=== PATIENT | female | born 1985 | race Caucasian/White ===

== ENCOUNTER 2020-07-02 21:46 | Inpatient (IN) | payer OTHER ==
[2020-07-02 22:23] VITALS: BMI 25.5
[2020-07-02] MEDS ORDERED: Promethazine HCl 25 MG/ML VIAL IM PRN (23:19)
[2020-07-02] MEDS ORDERED: NS / Oxytocin 40 units/1000ml 1,000 ML IV PRN (23:19)
[2020-07-02] MEDS ORDERED: Acetaminophen 500 MG TAB PO PRN (23:19)
[2020-07-02] MEDS ORDERED: hydrALAZINE 20 MG/ML VIAL SLOW IVP PRN (23:19)
[2020-07-02] MEDS ORDERED: Butorphanol Tartrate 1 MG/ML VIAL SLOW IVP PRN (23:19)
[2020-07-02] MEDS ORDERED: Misoprostol 200 MCG TAB PR PRN (23:19)
[2020-07-02] MEDS ORDERED: Ibuprofen 800 MG TAB PO PRN (23:19)
[2020-07-02] MEDS ORDERED: Ondansetron PF 4 MG/2 ML Vial IVP PRN (23:19)
[2020-07-02 23:42] LABS: Hemoglobin 12.4 g/dL (12.0-16.0); Mean Corpuscular HGB CONC 34.2 g/dL (32.0-36.0); Mean Corpuscular Hemoglobin 31.2 pg (27.0-31.0); Mean Corpuscular Volume 91.4 fL (78.0-98.0); Mean Platelet Volume 11.8 fL (7.4-10.4); Platelet Count 133 thou/uL (130-400); RBC Distribution Width 13.4 % (11.5-14.5); Red Blood Cell (RBC) Count 3.96 mill/uL (4.20-5.40); White Blood Cell (WBC) Count 11.3 thou/uL (4.8-10.8)
[2020-07-03 00:23] LABS: HBSAg Index 0.15 S/CO (0-0.99); Hep B Surf Ag Non-Reactive S/CO (NonReactive); Syphilis Antibody Nonreactive (Nonreactive); Syphilis Antibody Index 0.03 S/CO (<1.00 Non-Reactive)
--- NOTE | 2020-07-03 02:36 | PDOC.LDHP ---
Labor and Delivery H&P Chief complaint: contractions HPI: Patient started having contractions after drinking castor oil blend at 1800- 1830. they were 3-4 minutes apart when they started. Her product transfer pumper arrived at the house and then she arrived here to [place] together. Denies ROM. Affirms movement. Current gestational age (weeks): 41 Due date: 06/26/20 Dating criteria: other (IVF transfer) Grav: 2 Para: 1 OB History Details: 2017. 8.lbs5 ounces, possible 3rd degree laceration- pt does not recall the degree. Current complications: none Abnormal US findings: No Past Medical History: endometriosis hypothyroidism Current medications: pre- vitamins, other ([place] thyroid Vitamin D3) Previous surgical history: other (Laproscopy x 2 for endometriosis) Allergies/Adverse Reactions: Allergies Allergy/AdvReac Type Severity Reaction Status Date / Time No Known Drug Allergies Allergy Verified 07/02/20 22:10 Social history: none - Physical Exam Vital signs reviewed and normal: yes General: resting, breathing through contractions Lungs: nonlabored breathing Abdomen: gravid Extremeties: no edema FHT: category 1 - Vaginal Exam cm dilated: 6 Effacement: 90% Station: -1 - OB Labs Blood type: A RH: positive Antibody Screen: negative HIV: negative RPR: negative HEPSAg: negative 1 hour GCT: negative GBS: negative Urine drug screen: negative Rubella: immune - Assessment L&D Assessment: term patient in labor - Plan Plan: admit to L&D, informed consent obtained, anesthesia consult for pain management -: AROM at 0242 for augmentation of labor.
[2020-07-03] MEDS ORDERED: Lidocaine 1% (PF) 30 ML VIAL ONE (04:49)
[2020-07-03] MEDS ORDERED: NS w/ Oxytocin 10 units 500 ML ONE (08:15)
--- NOTE | 2020-07-03 08:40 | PDOC.BPN ---
- Brief Progress Note Encounter Date: 07/03/20 Encounter Time: 08:00 35 y.o at 41 weeks completely dilated and +2 - +3 with pushing. 2nd stage from [id number] and contractions completely stopped for 45 minutes. Pt was sleeping during this time. After resting, pt was moved to an upright position to encourage contractions to restart. Contractions did restart but are currently significantly spaced out at 8-10 minutes between each. While it is acknowledges this is prolonged 2nd stage for a multiparous patient, I feel this is a contraction frequency and power issue. Options were discussed to include starting pitocin to increase frequency vs. VE. Patient agrees to pitocin a this time. OB Hospitalist was notified and aware of the patient status.
--- NOTE | 2020-07-03 09:50 | PDOC.BPN ---
- Brief Progress Note Encounter Date: 07/03/20 Encounter Time: 09:42 After starting pitocin, contraction frequency did not increase. there was also a loss of station when pt was in lithotomy position. the patient was counseled on risks of continuing including harm, shoulder dystocia, and distress. Counseling and recommendation made to proceed with primary c-sections.
[2020-07-03] MEDS ORDERED: Bicitra 30 ML UDCUP PO SCH (10:00)
[2020-07-03] MEDS ORDERED: CEFAZOLIN 2 GM in Premix Bag 1 BAG IVPB SCH (10:00)
[2020-07-03] MEDS ORDERED: Azithromycin 500 MG in Sodium Chloride 0.9% 250 ML 250 ML IVPB SCH (10:00)
[2020-07-03] MEDS ORDERED: Oxytocin 10 UNITS/ML VIAL ONE ×2 (10:40→10:41)
[2020-07-03] MEDS ORDERED: Dexamethasone 4 mg/ml Vial ONE ×2 (10:41→10:52)
--- NOTE | 2020-07-03 10:42 | HP ---
PREOP NOTE TIME OF EVALUATION: 09:48. LOCATION: Bed 11 in Labor and Delivery. HISTORY OF PRESENT ILLNESS: In brief, I was briefed on this patient about 1 hour ago by Suzanne Lazo CNM, who has been laboring with this patient. The patient is a multigravida who has now had a prolonged second stage over 3 hours with no further descent. There was some concern of lack of contractions and uterine fatigue, so Pitocin had been started. This was started in the second stage. Despite the use of Pitocin, contractions are still not functional/coordinated and they are rare. The diagnosis is prolonged second stage with possible uterine inertia and possible head asynclitism. While initially some of the baby's scalp was visible at about +4 station, it has now lost a little bit of station, but there is no evidence of bleeding or heart rate decelerations, and the patient's abdomen is soft. Because of the prolonged second stage and failure to descend and the uterine inertia, the patient has now accepted a primary section. I had seen the patient at bedside and I have discussed with her the reason and indication for as dictated above. I have also discussed the possible use of a vaginal hand if necessary to dislodge station. Job ID: [id number]
[2020-07-03] MEDS ORDERED: Ketorolac Tromethamine 30 MG/ML VIAL ONE (10:52)
[2020-07-03] MEDS ORDERED: PHENYLEPHRINE-NS 100 MCG/ML 10 ML SYRINGE ONE ×2 (10:52→11:24)
[2020-07-03] MEDS ORDERED: Ondansetron PF 4 MG/2 ML Vial ONE (10:52)
[2020-07-03] MEDS ORDERED: ePHEDrine 50 MG/ML VIAL ONE (11:04)
--- NOTE | 2020-07-03 11:04 | PRG ---
DATE OF SERVICE: 07/03/2020 This is a followup preop note. TIME: 10:49. PREOPERATIVE NOTE ADDENDUM: In brief, I spent about an hour since we decided to proceed with a , but we are awaiting anesthesia availability. Dr. Saldana is aware, but we are still awaiting start time. Job ID: [id number]
[2020-07-03] MEDS ORDERED: Carboprost 250 MCG/ML AMP ONE (11:14)
[2020-07-03] MEDS ORDERED: diphenhydrAMINE 50 MG/ML VIAL IVP PRN ×2 (11:30→20:00)
[2020-07-03] MEDS ORDERED: Ondansetron PF 4 MG/2 ML Vial IVP PRN ×3 (11:30→20:00)
[2020-07-03] MEDS ORDERED: Naloxone HCl 0.4 mg/ml Vial IVP PRN ×2 (11:30)
[2020-07-03] MEDS ORDERED: Meperidine HCl/PF 25 MG/ML VIAL SLOW IVP PRN (11:30)
[2020-07-03] MEDS ORDERED: Ondansetron HCl/PF 4 MG/2 ML Vial IVP PRN (11:30)
[2020-07-03] MEDS ORDERED: Naloxone HCl 0.4 mg/ml Vial IV PRN ×4 (11:30→20:00)
[2020-07-03] MEDS ORDERED: Communication Order-Pharmacy FS SCH (11:30)
[2020-07-03] MEDS ORDERED: L&D-Morphine 4 MG/ML VIAL SLOW IVP PRN (11:30)
[2020-07-03] MEDS ORDERED: Promethazine HCl 25 MG/ML VIAL IM PRN ×3 (11:30→20:00)
[2020-07-03] MEDS ORDERED: Promethazine HCl 25 MG SUPP PR PRN ×2 (11:30→20:00)
[2020-07-03] MEDS ORDERED: HYDROmorphone 2 MG/ML VIAL SLOW IVP PRN (11:30)
[2020-07-03] MEDS ORDERED: Varicella virus, LIVE 0.5 ML VIAL SC ONE (11:38)
[2020-07-03] MEDS ORDERED: Lanolin Ointment 7 GM TUBE TOP PRN (11:38)
[2020-07-03] MEDS ORDERED: hydrALAZINE 20 MG/ML VIAL SLOW IVP PRN (11:38)
[2020-07-03] MEDS ORDERED: Measles/Mumps/Rubella 10 MCG/0.5 ML VIAL SC ONE (11:38)
[2020-07-03] MEDS ORDERED: Simethicone Chewable 80 MG TAB PO PRN (11:38)
[2020-07-03] MEDS ORDERED: Acetaminophen/Codeine 30-300mg Tablet PO PRN (11:38)
[2020-07-03] MEDS ORDERED: Adacel (T-DAP) 0.5 ML SYRINGE IM ONE (11:38)
--- NOTE | 2020-07-03 11:42 | PDOC.BPN ---
- Brief Progress Note Encounter Date: 07/03/20 Op Note: Primary LTCS without complications Dictated
--- NOTE | 2020-07-03 12:10 | OP ---
DATE OF PROCEDURE: 07/03/2020 This is a note. PREOPERATIVE DIAGNOSES: 1. This is a multigravida with prolonged second stage and failure to descend. 2. Uterine inertia. POSTOPERATIVE DIAGNOSES: 1. This is a multigravida with prolonged second stage and failure to descend. 2. Status post primary low-transverse section via Pfannenstiel. PROCEDURE: Primary low-transverse section via Pfannenstiel skin incision. ASSISTANTS: 1. Suzanne Lazo CNM. 2. Marilee Duffy (third-year medical student). ANESTHESIA: Spinal anesthetic block. Antibiotics: Ancef and Zmax FINDINGS: 1. There is a baby in cephalic presentation, slightly asynclitic. 2. No nuchal cord. 3. 3-vessel cord intact placenta. 4. The placenta was delivered by Staton mechanism and was intact. 5. Hemostasis was assured after hysterotomy closure. 6. Inspection of the adnexa revealed no gross masses or lesions. ESTIMATED BLOOD LOSS: About 600 mL and the QBL is pending. COMPLICATIONS: None. COUNTS: Correct. DRAINS: [place]. DISPOSITION: To recovery room in good and stable condition. TECHNIQUE: After proper informed consent was explained to the patient, she was transferred to the Labor and Delivery operating room, where she was successfully placed under spinal anesthetic block. The patient's abdomen was prepped and draped in the usual sterile fashion. A typical first generation cephalosporins and Zithromax were given for antibiotic prophylaxis per protocol. A low-transverse skin incision was made with a scalpel and then Bovie cautery on cut mode was used to dissect the subcutaneous tissue down to the level of the fascia. The fascia was identified cleaned off any overlying fat, and entered using Bovie cautery on cut mode in a transverse fashion. Care was taken to avoid the underlying muscles. Next, the rectus muscles were off the fascia in the midline, both superiorly and inferiorly with Mirza scissors. The rectus muscles were away from the midline by blunt dissection and then hemostats were used to elevate the peritoneum and the peritoneum was entered by blunt dissection. After inspection of the abdominal pelvic contents, an Dwaine-O ring retractor was placed into the wound for atraumatic retraction. A low-transverse hysterotomy was made with a scalpel without bladder flap creation. Baby was delivered in atraumatic fashion and was in a cephalic presentation. There were no complications with the delivery. We allowed about a 60-second delayed cord clamp and the cord was clamped x2 and then the baby was transported/handed off to the NICU team who was present per protocol. The uterus was massaged and the placenta was extruded in an intact fashion. A dry laparotomy sponge was used to curettage the uterine cavity assuring absence of retained products of conception. We then closed the hysterotomy using #1 Monocryl in a running locking fashion. Hemostasis was assured. This was closed in one layer. Copious irrigation was then done and after confirming hemostasis and after inspection of the adnexa, we then closed the parietal peritoneum and the rectus muscles in the midline with 2-0 chromic in a running nonlocking fashion. This was done in a continuous stitch. We then inspected underneath the fascia and after confirming hemostasis, we closed the fascia with #1 PDS in a running nonlocking fashion. Two sutures were used for closure. Copious irrigation was done of the subcutaneous tissue and then the skin was closed with suture in the typical manner. Frostproof were not used. Job ID: [id number] [facility]
[2020-07-03 12:11] LABS: SARS-CoV-2 MS2 Positive; SARS-CoV-2 N Gene Negative; SARS-CoV-2 S Gene Negative; SARS-CoV-2 by NAA Not Detected (NotDetected); SARS-CoV-2 orf1ab Negative
[2020-07-03] MEDS ORDERED: Ibuprofen 800 MG TAB PO SCH (14:00)
[2020-07-03] MEDS ORDERED: Ketorolac Tromethamine 30 MG/ML VIAL IVP SCH (17:30)
[2020-07-03] MEDS ORDERED: Promethazine HCl 25 MG in Sodium Chloride 0.9% 50 ML IVPB PRN (18:42)
[2020-07-03] MEDS ORDERED: Hydrocerin (Eucerin) Cream 120 gm Jar TOP PRN (20:00)
[2020-07-03] MEDS ORDERED: NO PO,IM,IV OR SC NARCOTICS FOR 12HR EXCEPT BY ANESTHESIA PO SCH (20:00)
[2020-07-04] MEDS: Ketorolac Tromethamine 30 MG/ML VIAL IVP PRN ×2 (01:17→09:03)
--- NOTE | 2020-07-04 06:04 | PDOC.PP ---
Post Progress Note Post Day #: 1 from primary CS prlonged second stage Subjective: Doing well PO intake tolerated: yes Flatus: yes Ambulation: yes Vital Signs (12 hours) Temp Pulse Resp BP Pulse Ox 07/04/20 03:57 97.9 F 75 16 118/69 96 07/04/20 00:25 97.6 F 78 16 102/51 L 97 07/03/20 20:22 97.5 F L 80 14 121/67 99 Weight Weight 168 lb - Physical Examination Respiratory: non-labored breathing Abdominal: lochia, no distention, appropriately TTP Extremities: negative homans (B) Skin: CS incision dry & intact, no rash Neurological: no gross focal deficits Result Diagrams: 07/02/20 23:25 Additional Labs: Post Labs Hep Bs Antigen Non-Reactive S/CO (NonReactive) 07/02/20 23:25 Blood Type A POSITIVE 07/03/20 00:21 (1) Delivery by section Code(s): TBX0240 - Status: Acute (2) Prolonged second stage (of labor) Code(s): O63.1 - PROLONGED SECOND STAGE (OF LABOR) Status: Acute - Assessment/Plan POD 1 doing well Incision sutured Continue postop care
[2020-07-04 06:50] LABS: Hemoglobin 9.2 g/dL (12.0-16.0); Mean Corpuscular HGB CONC 33.5 g/dL (32.0-36.0); Mean Corpuscular Hemoglobin 31.3 pg (27.0-31.0); Mean Corpuscular Volume 93.4 fL (78.0-98.0); Mean Platelet Volume 11.1 fL (7.4-10.4); Platelet Count 116 thou/uL (130-400); RBC Distribution Width 13.5 % (11.5-14.5); Red Blood Cell (RBC) Count 2.94 mill/uL (4.20-5.40); White Blood Cell (WBC) Count 11.2 thou/uL (4.8-10.8)
[2020-07-04] MEDS ORDERED: Sodium Chloride 0.9% 10 ML ONE (08:55)
[2020-07-04] MEDS: Prenatal Vitamin 1 TAB PO SCH (09:02)
[2020-07-04] MEDS: Acetaminophen/Codeine 30-300mg Tablet PO PRN ×2 (16:27→20:41)
[2020-07-04] MEDS: Ibuprofen 800 MG TAB PO SCH (20:43)
[2020-07-05] MEDS: Acetaminophen/Codeine 30-300mg Tablet PO PRN ×4 (01:07→13:24)
[2020-07-05] MEDS: Ibuprofen 800 MG TAB PO SCH ×2 (05:25→13:24)
[2020-07-05 07:36] VITALS: BP 120/59; TEMP 97.8
[2020-07-05] MEDS: Prenatal Vitamin 1 TAB PO SCH (08:56)
== END 2020-07-05 15:07 | disposition home or self-care (01) | DRG 788 ==
LOC: L&D/OP 21:46 → L&D-LIB 23:19 → 3SW 07-03 14:17
PROVIDERS: ADMIT Obstetrics & Gynecology; ATTEND Obstetrics & Gynecology
PROC: 10D00Z2 Extraction of Products of Conception, Extraperitoneal, Open Approach (ICD-10-PCS; principal; 2020-07-03)
DX: O62.2 Other uterine inertia (principal); O48.0 Post-term pregnancy; Z3A.41 41 weeks gestation of pregnancy; Z37.0 Single live birth; Z20.828 Contact with and (suspected) exposure to other viral communicable diseases
CPT/HCPCS: 36415; 51702; 85027; 86780; 86850; 86900; 86901; 87340; 87635; 99285; J0690; J1100; J1885; J2001; J2270; J2405; J2550; J2590; J3490; U0003

== ENCOUNTER 2024-07-22 14:59 | Outpatient (CLI) | payer OTHER | END 2024-07-22 15:00 | disposition home or self-care (01) | LOC: BICMAMMO 14:59 | PROVIDERS: ATTEND Advanced Practice Midwife | DX: Z12.31 Encounter for screening mammogram for malignant neoplasm of breast (principal); Z80.3 Family history of malignant neoplasm of breast | CPT/HCPCS: 77063; 77067 ==